=== PATIENT | male | born 1980 ===

== ENCOUNTER 2016-11-13 09:42 | Observation (INO) | payer OTHER, SELFPAY ==
--- NOTE | 2016-11-13 10:21 | ED PDOC ---
HPI:STROKE - Time Time: 10:18 - Historian Historian: Patient - Chief Complaint Chief Complaint: Weakness, Numbness, other (PAIN) - Onset Date: 11/13/16 Time: 08:00 - Context Context: Other - Location Locate right:: Face, Upper extremity, Lower extremity, other (neck) - Radiation Radiation: Jaw, Neck, Upper Arm, Leg - Severity of pain Pain Scale:: 8 - Quality of Pain Quality of Pain:: Unable to Describe - Associated Symptoms Associated symptoms:: Pain, Visual (photophobia) NIHSS Stroke Scale - Date/Time Evaluation Performed Date Performed: 11/13/16 Time Performed: 10:21 When Was NIHSS Performed: Code Stroke - How Severe is the Stroke Level of Consciousness: 0=Alert LOC to Questions: 0=Both comments correct LOC to commands: 0=Obeys both correctly Best Gaze: 0=Normal Visual: 0=No visual loss Facial: 0=Normal Motor Arm - Left: 0=No drift Motor Arm - Right: 3=No effort against gravity (falls immediately) Motor Leg - Left: 0=No drift Motor Leg - Right: 4=No movement Limb Ataxia: 1=Present Upper or Lower Sensory: 0=Normal Best Language: 0=No aphasia Dysarthia: 0=Normal articulation Extinction & Inattention (Neglect): 0=Normal, no object Score: 8 rTPA Inclusion/Exclusion - Refusal of Treatment Patient Refused Treatment: No - Inclusion Criteria for Altepase Patient is 18 years or Older: Yes The Clinical Diagnosis of Ischemic Stroke That is Causing a Potentially Disabling Neurological Deficit: No Time of Onset is Well Established to be Less Than 270 Minute Before Treatment Would Begin: No Risk/Benefit Discussed With Patient/Family Member Present: No Past Medical History - Medical History PMH: No Chronic Diseases - Surgical History Surgical History: Hernia Repair - Family History Family History: States: Unknown Family Hx - Social History Alcohol: Social - Home Medications Home Medications: Ambulatory Orders Medication Instructions Recorded No Known Home Med 06/03/15 - Allergies Allergies/Adverse Reactions: Allergies Allergy/AdvReac Type Severity Reaction Status Date / Time No Known Allergies Allergy Verified 06/03/15 12:58 Review of Systems Constitutional: Positive for: Weakness. Negative for: Fever, Chills, Sweats ENT: Positive for: Mouth Pain (jaw pain). Negative for: Ear Pain, Ear Discharge , Nose Pain, Nose Discharge Cardiovascular: Negative for: Chest Pain, Palpitations, Orthopnea Respiratory: Positive for: Shortness of Breath. Negative for: Cough Gastrointestinal: Negative for: Nausea, Vomiting, Abdominal Pain, Diarrhea, Constipation Genitourinary Male: Negative for: Dysuria, Hematuria Musculoskeletal: Positive for: Neck Pain, Arm Pain, Leg Pain Skin: Negative for: Rash Neurological: Positive for: Numbness (right arm/leg). Negative for: Seizures, Headache Physical Exam - Reviewed Vital Signs Reviewed: Yes (bedside 99, sinus tachycardia, BP 151/81) - Physical Exam Appears: Positive for: In Acute Distress (secondary to pain) Skin: Positive for: Normal Color, Warm, Diaphoresis. Negative for: Pallor, Rash Eye Exam: Positive for: Normal appearance, EOMI, PERRL ENT: Positive for: Normal ENT Inspection Neck: Positive for: Pain On Movement Of Neck (towards right) Cardiovascular/Chest: Positive for: Regular Rate, Rhythm, Chest Non Tender, Tachycardia. Negative for: Murmur Respiratory: Positive for: Normal Breath Sounds. Negative for: Accessory Muscle Use, Rales, Rhonchi, Stridor, Wheezing Gastrointestinal/Abdominal: Positive for: Normal Exam, Soft. Negative for: Tenderness, Organomegaly, Distended, Guarding Back: Positive for: Normal Inspection. Negative for: L CVA Tenderness, R CVA Tenderness Rectal: Positive for: Deferred Neurologic/Psych: Positive for: Alert, Oriented, Motor/Sensory Deficits (right arm/leg numbness, able to feel gross sensation), Gait (limping upon arrival). Negative for: Aphasia, Facial Droop - Laboratory Results Result Diagrams: 11/14/16 04:20 11/14/16 04:20 - Progress ED Course And Treament: Code STROKE called given patient neurologic symptoms, given patients presentation it is possible that this is an aortic dissection -PATIENT TOOK ASPIRIN AT HOME PRIOR TO PRESENTATION * CT HEAD CODE STROKE * CTA HEAD AND NECK * CBC * CMP * LIPID * HGA1C * TROPONINS * EKG * GAS FLOW REGULATOR * MORPHINE 4MG patient seen and examined with Dr. Noel. Right arm symptoms rapidly improving, not resolved. Right lower extremity weakness persists,neck pain persists. Dilaudid 1mg IVP MRA neck w/wo contrast, Brain MRI, MRI thoracic spine 1605: patient reexamined, symptoms persist, neck pain and right lower extremity hemiparesis will admit for observation Disposition - Clinical Impression Clinical Impression: Hemiparesis due to non-cerebrovascular etiology - Patient ED Disposition Is Patient to be Admitted: Yes - Disposition Disposition Time: 14:53 Condition: FAIR - Pt Status Changed To: Hospital Disposition Of: Inpatient - Admit Certification Admit to Inpatient:: After my assessment, the patient will require hospitalization for at least two midnights. This is because of the severity of symptoms shown, intensity of services needed, and/or the medical risk in this patient being treated as an outpatient. - POA Present On Arrival: None Core Measure Indicators: Code Stroke
[2016-11-13] MEDS ORDERED: Morphine 4 MG/ML VIAL ONE (10:30)
--- NOTE | 2016-11-13 10:32 | CT ---
PROCEDURE: CT HEAD WITHOUT CONTRAST. HISTORY: code stroke COMPARISON: None available. TECHNIQUE: Axial computed tomography images were obtained through the head/brain without intravenous contrast. Radiation dose: Total exam DLP = 794 mGy-cm. This CT exam was performed using one or more of the following dose reduction techniques: Automated exposure control, adjustment of the mA and/or kV according to patient size, and/or use of iterative reconstruction technique. FINDINGS: HEMORRHAGE: No intracranial hemorrhage. BRAIN: Overall density of the harrison and white matter structures above or below the tentorium appear within normal limits including the brainstem. There is no mass-effect. The midbrain appears grossly within normal limits. VENTRICLES: Unremarkable. No hydrocephalus. CALVARIUM: Unremarkable. PARANASAL SINUSES: Limited bilateral ethmoid sinus disease encountered incidentally. MASTOID AIR CELLS: Unremarkable as visualized. No inflammatory changes. OTHER FINDINGS: None. IMPRESSION: Unremarkable unenhanced head CT as per above. Follow-up CT or MRI may be considered as clinically warranted.
[2016-11-13 10:45] LABS: ALB/GLOB RATIO 1.4 (1.0-2.1); ALKALINE PHOSPHATASE 78 U/L (38-126); ALT/SGPT 57 U/L (21-72); AST/SGOT 35 U/L (17-59); BILIRUBIN,TOTAL 0.3 mg/dl (0.2-1.3); BLOOD UREA NITROGEN 10 mg/dl (9-20); CALCIUM 8.8 mg/dL (8.4-10.2); CARBON DIOXIDE 23 mmol/L (22-30); CHLORIDE 101 mmol/L (98-107); CHOLESTEROL 167 mg/dL (0-199); GFR AFRICAN-AMERICAN > 60; GLUCOSE,RANDOM 126 mg/dL (75-110); POTASSIUM 3.6 MMOL/L (3.6-5.0); SODIUM 136 mmol/l (132-148); TOTAL PROTEIN 7.3 G/DL (6.3-8.2)
[2016-11-13 10:50] LABS: PARTIAL THROMBOPLASTIN TIME 29.8 Seconds (25.6-37.1)
[2016-11-13 11:09] LABS: BASO % 0.5 % (0.0-2.0); HEMATOCRIT 41.2 % (35.0-51.0); LYMPH # 1.5 K/uL (1.0-4.3); LYMPH % 16.8 % (20.0-40.0); MEAN CELL VOLUME 90.7 fl (80.0-94.0); MEAN CORPUSCULAR HEMOGLOBIN 30.8 pg (27.0-31.0); MEAN CORPUSCULAR HGB CONC 33.9 g/dL (33.0-37.0); MEAN PLATELET VOLUME 7.5 fl (7.2-11.7); MONO # 0.6 K/uL (0.0-0.8); MONO % 6.7 % (0.0-10.0); NEUT # 6.8 K/uL (1.8-7.0); NRBC % 0.1 % (0.0-0.0); RED CELL DISTRIBUTION WIDTH 13.7 % (11.5-14.5); WHITE BLOOD COUNT 8.9 K/uL (4.8-10.8)
[2016-11-13] MEDS ORDERED: Gadodiamide 287 MG/ML VIAL (15ML) IV ONE (12:11)
[2016-11-13] MEDS ORDERED: Sodium Chloride 0.9% 50 ML IV ONE (12:11)
--- NOTE | 2016-11-13 13:10 | MRI ---
PROCEDURE: MRI BRAIN WITHOUT CONTRAST HISTORY: right sided weakness r/o cva COMPARISON: Head CT 11/13/2016. TECHNIQUE: Multiplanar, multisequence MR images of the brain were obtained without intravenous contrast enhancement. FINDINGS: HEMORRHAGE: None DWI: No evidence of an acute or early subacute infarction. BRAIN PARENCHYMA: Motion artifact limits the exam somewhat. There is no definite harrison or white-matter signal abnormality identified in the cerebrum, cerebellum or the brainstem. There is no mass effect. The midline brain and appears normal and there is no suspicious extra-axial fluid collection appreciated. VENTRICLES: Unremarkable. No hydrocephalus. CRANIUM: Unremarkable. ORBITS: Grossly unremarkable. PARANASAL SINUSES/MASTOIDS: Clear VASCULAR SYSTEM: Skull base flow voids intact. OTHER FINDINGS: None. IMPRESSION: Unremarkable non contrast enhanced MRI of the brain.
--- NOTE | 2016-11-13 14:33 | RAD ---
HISTORY: Stroke-like symptoms. Portable study 11:19 COMPARISON: No prior. FINDINGS: LUNGS: No active pulmonary disease. PLEURA: No significant pleural effusion identified, no pneumothorax apparent. CARDIOVASCULAR: Normal. OSSEOUS STRUCTURES: No significant abnormalities. VISUALIZED UPPER ABDOMEN: Normal. OTHER FINDINGS: None. IMPRESSION: No active disease. Concordant results with the preliminary interpretation rendered by the emergency department physician procedure.
--- NOTE | 2016-11-13 15:36 | MRI ---
PROCEDURE: MR THORACIC SPINE WITH AND WITHOUT CONTRAST HISTORY: right sided weakness COMPARISON: None available. TECHNIQUE: Multiecho multiplanar sequences were performed through the thoracic spine with and without the use of intravenous contrast. FINDINGS: ALIGNMENT: Normal thoracic spinal alignment. Normal thoracic kyphosis. VERTEBRA: Vertebral body height are preserved. MARROW: Limited degenerative endplate changes seen at the T11-12 level overall marrow signal is otherwise within normal limits throughout. . PARASPINAL SOFT TISSUES: Unremarkable. CORD: Unremarkable thoracic cord. No volume loss, signal abnormality or syrinx. The conus medullaris terminates in the lumbar spine, likely at L2. DISCS: No disc herniation, spinal canal stenosis, or neuroforaminal narrowing. ENHANCEMENT: No abnormal intrathecal or epidural enhancement. OTHER FINDINGS: None. IMPRESSION: Unremarkable pre and post contrast enhanced MRI of the thoracic spine. No fracture or spondylolisthesis. No significant stenosis identified throughout. No no disc herniation identified.
--- NOTE | 2016-11-13 15:38 | MRI ---
PROCEDURE: MR Angiography of the neck with and without contrast HISTORY: right sided weakness COMPARISON: None available. TECHNIQUE: Contrast enhanced and [id number] angiography of the neck was performed. Rotating 3D maximum intensity projection images of the cervical carotid and vertebral arteries were generated. FINDINGS: RIGHT CAROTID ARTERIES: Common Carotid Artery: Normal. Carotid Bifurcation: Normal. Internal Carotid Artery:Normal. External Carotid Artery (proximal branches): Normal. LEFT CAROTID ARTERIES: Common Carotid Artery: Normal. Carotid Bifurcation: Normal. Internal Carotid Artery:Normal. External Carotid Artery (proximal branches): Normal. VERTEBRAL ARTERIES: Right Vertebral Artery: Normal. Left Vertebral Artery: Normal. OTHER FINDINGS: None. IMPRESSION: Normal MR Angiography of the neck.
--- NOTE | 2016-11-13 15:50 | MRI ---
PROCEDURE: MR CERVICAL SPINE WITH AND WITHOUT CONTRAST HISTORY: right sided weakness COMPARISON: None available. TECHNIQUE: Multiecho multiplanar sequences were performed through the cervical spine with and without the use of intravenous contrast. FINDINGS: Normal lordotic curvature. Craniocervical junction unremarkable. Vertebral body heights preserved. No marrow signal abnormality. Normal cervical cord. No paraspinal abnormality. No abnormal enhancement C2-3: No disc herniation, spinal canal stenosis or neural foraminal narrowing. C3-4: No disc herniation, spinal canal stenosis or neural foraminal narrowing. C4-5: No disc herniation, spinal canal stenosis or neural foraminal narrowing. C5-C6: No disc herniation, spinal canal stenosis or neural foraminal narrowing. C6-C7: No disc herniation, spinal canal stenosis or neuroforaminal narrowing. C7-T1: No disc herniation, spinal canal stenosis or neural foraminal narrowing. OTHER FINDINGS: None. IMPRESSION: 1. There is no disc herniation, central canal or neural foraminal stenosis appreciated throughout the cervical spine. Further, the cervical spinal cord appears normal in course caliber contour and intrinsic signal. 2. No abnormal intrathecal or epidural enhancement throughout the cervical spine.
[2016-11-13 18:02] LABS: URINE BILIRUBIN NEGATIVE (NEGATIVE); URINE BLOOD NEGATIVE (NEGATIVE); URINE COLOR COLORLESS (YELLOW); URINE GLUCOSE (UA) NEG (Normal); URINE KETONE NEGATIVE (NEGATIVE); URINE LEUKOCYTE ESTERASE NEG Leu/uL (Negative); URINE PROTEIN NEGATIVE (NEGATIVE); URINE UROBILINOGEN 0.2-1.0 mg/dL (0.2-1.0); WBC URINE < 1 /hpf (0-5)
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
[2016-11-14 00:19] VITALS: O2SAT 98
[2016-11-14 05:19] LABS: BASO # 0.1 K/uL (0.0-0.2); BASO % 0.9 % (0.0-2.0); EOS # 0.1 K/uL (0.0-0.7); EOS % 1.6 % (0.0-4.0); HEMATOCRIT 41.9 % (35.0-51.0); MEAN CELL VOLUME 91.9 fl (80.0-94.0); MEAN CORPUSCULAR HGB CONC 33.7 g/dL (33.0-37.0); MEAN PLATELET VOLUME 7.1 fl (7.2-11.7); MONO # 0.9 K/uL (0.0-0.8); MONO % 11.8 % (0.0-10.0); NEUT # 4.2 K/uL (1.8-7.0); NEUT % 57.7 % (50.0-75.0); RED CELL DISTRIBUTION WIDTH 13.9 % (11.5-14.5); WHITE BLOOD COUNT 7.3 K/uL (4.8-10.8)
[2016-11-14 05:29] VITALS: RESP 20
[2016-11-14 05:30] LABS: BLOOD UREA NITROGEN 9 mg/dl (9-20); CALCIUM 9.3 mg/dL (8.4-10.2); CARBON DIOXIDE 27 mmol/L (22-30); CHLORIDE 104 mmol/L (98-107); GFR AFRICAN-AMERICAN > 60; GLUCOSE,RANDOM 88 mg/dL (75-110); POTASSIUM 3.7 MMOL/L (3.6-5.0); SODIUM 138 mmol/l (132-148)
[2016-11-14 08:12] VITALS: BP 125/73; PULSE 71; TEMP 97.7
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
[2016-11-14] MEDS ORDERED: Pantoprazole 40 mg EC Tab PO SCH (09:00)
[2016-11-14] MEDS ORDERED: Enoxaparin 40 mg Syringe SC SCH (09:00)
--- NOTE | 2016-11-15 18:29 | CARD ---
APPROVED REPORT EKG Measurement Heart [id number] <Conclusion> Normal sinus rhythm Normal ECG
== END 2016-11-14 10:46 | disposition home or self-care (01) ==
LOC: H.ER 09:42 → H.ERHOLD 16:53 → H.TEL 19:35
DX: F43.0 Acute stress reaction (principal); F41.9 Anxiety disorder, unspecified; G81.91 Hemiplegia, unspecified affecting right dominant side; F17.200 Nicotine dependence, unspecified, uncomplicated